=== PATIENT | female | born 1965 | race African-American/Black ===

== ENCOUNTER 2021-05-31 06:48 | Observation (INO) | payer BC, SELFPAY ==
[2021-05-31] MEDS ORDERED: Ondansetron PF 4 MG/2 ML Vial ONE (07:18)
[2021-05-31] MEDS ORDERED: Diazepam 10 MG/2 ML SYRINGE ONE ×2 (07:43→11:58)
[2021-05-31 07:44] LABS: #Basophils 0.1 10x3/uL (0.0-0.2); #Eosinphils 0.2 10x3/uL (0.0-0.5); #Monocytes 0.3 10x3/uL (0.0-1.1); #Neutrophils 5.6 10x3/uL (1.5-8.4); %Basophils 0.6 % (0.0-2.0); %Eosinophils 1.7 % (0.0-6.0); %Lymphocytes 37.2 % (18.0-47.0); %Monocytes 3.1 % (0.0-10.0); %Neutrophils 56.6 % (40.0-75.0); Hemoglobin 13.5 g/dL (12.0-15.5); Mean Corpuscular HGB CONC 33.1 g/dL (32.0-36.0); Mean Corpuscular Hemoglobin 28.6 pg (27.0-33.0); Mean Corpuscular Volume 86.4 fl (81.6-98.3); Mean Platelet Volume 9.9 fl (7.4-10.4); Platelet Count 241 10x3/uL (150-450); RBC Distribution Width 12.5 % (11.5-14.5); Red Blood Cell (RBC) Count 4.72 10x6/uL (3.90-5.03); White Blood Cell (WBC) Count 9.8 10x3/uL (3.5-10.5)
[2021-05-31 07:49] LABS: ALT (SGPT) 16 U/L (8-55); AST (SGOT) 19 U/L (5-34); Albumin 4.4 g/dL (3.5-5.0); Alkaline Phosphatase 150 U/L (40-110); Anion Gap 18 mmol/L (10-20); BUN (Urea Nitrogen) 9 mg/dL (9.8-20.1); Bilirubin, Total 0.5 mg/dL (0.2-1.2); Calc. Creatinine Clearance 0 mL/min (70-130); Carbon Dioxide 22 mmol/L (22-29); Chloride 100 mmol/L (98-107); Globulin 3.8 g/dL (2.4-3.5); Glucose 510 mg/dL (70-105); Potassium 3.4 mmol/L (3.5-5.1); Protein, Total 8.2 g/dL (6.0-8.3); Sodium 137 mmol/L (136-145)
[2021-05-31] MEDS ORDERED: Meclizine HCl 25 MG TAB ONE (08:17)
[2021-05-31] MEDS ORDERED: Dextrose 50% Abboject 50 ML SYRINGE SLOW IVP PRN (10:29)
[2021-05-31] MEDS ORDERED: Dextrose 5% in Water 1,000 ML IV PRN (10:29)
[2021-05-31] MEDS ORDERED: HumaLOG 300 UNITS/3 ML VIAL SC PRN (10:29)
[2021-05-31] MEDS ORDERED: Senokot S 8.6-50 MG TAB PO PRN (11:19)
[2021-05-31 13:09] VITALS: BMI 28.8
[2021-05-31] MEDS ORDERED: ADMIXTURE FEE IV SCH (13:30)
[2021-05-31] MEDS ORDERED: SODIUM CHLORIDE IV SCH (13:30)
[2021-05-31] MEDS ORDERED: POTASSIUM ACETATE IV SCH (13:30)
[2021-05-31] MEDS: Ondansetron PF 4 MG/2 ML Vial IVP PRN ×2 (13:47→23:27)
[2021-05-31] MEDS: HumaLOG 300 UNITS/3 ML VIAL SC PRN ×3 (13:48→20:41)
[2021-05-31 14:07] LABS: Hemoglobin A1c Greater than 14.0 % (4.0-6.0)
[2021-05-31 14:31] LABS: Bilirubin Neg (Negative); Blood, Urine Negative (Negative); Clarity Clear (Clear); Glucose, Urine (Dipstick) >=1000 mg/dL (Negative); Ketone, Urine Negative (Negative); Leukocyte Negative (Negative); Nitrite Negative (Negative); Protein, Urine (Dipstick) Negative (Neg-Trace); Specific Gravity, Urine 1.005 (1.002-1.036); Urobilinogen Normal mg/dL (Less than 2)
[2021-05-31] MEDS: SODIUM CHLORIDE IV SCH (15:03)
[2021-05-31] MEDS: ADMIXTURE FEE IV SCH (15:03)
[2021-05-31] MEDS: POTASSIUM CHLORIDE IV SCH (15:03)
[2021-05-31] MEDS: hydrALAZINE 20 MG/ML VIAL SLOW IVP PRN ×2 (15:05→23:34)
[2021-05-31] MEDS: Meclizine HCl 25 MG TAB PO SCH ×2 (15:06→21:29)
[2021-05-31 15:45] LABS: Urine Culture Reflex No No
[2021-05-31 15:49] LABS: Bacteria/HPF Rare-Few HPF (None Seen); RBC/HPF 0-3 HPF (0-3); Squamous Epithelial 0-3 HPF (0-3)
[2021-05-31 15:50] LABS: Yeast-Budding Rare HPF (None Seen)
[2021-05-31] MEDS: Famotidine 20 MG TAB PO SCH (20:31)
[2021-05-31] MEDS ORDERED: Lantus 1000 UNITS/10 ML VIAL SC SCH (21:00)
[2021-05-31] MEDS ORDERED: diphenhydrAMINE 25 MG CAP PO SCH (22:15)
[2021-05-31 22:31] LABS: SARS-CoV-2 NAA Rapid Test Not Detected (NotDetected)
[2021-05-31] MEDS: Acetaminophen 325 MG TAB PO PRN (23:23)
[2021-06-01] MEDS ORDERED: Ketorolac Tromethamine 30 MG/ML VIAL IVP SCH (00:30)
[2021-06-01] MEDS: SODIUM CHLORIDE IV SCH ×2 (00:59→20:08)
[2021-06-01] MEDS: POTASSIUM CHLORIDE IV SCH ×2 (00:59→20:08)
[2021-06-01] MEDS: ADMIXTURE FEE IV SCH ×2 (00:59→20:08)
[2021-06-01] MEDS ORDERED: cloNIDine 0.1 MG TAB PO SCH (01:00)
[2021-06-01 04:56] LABS: #Eosinphils 0.1 10x3/uL (0.0-0.5); #Monocytes 0.3 10x3/uL (0.0-1.1); #Neutrophils 5.6 10x3/uL (1.5-8.4); %Basophils 0.5 % (0.0-2.0); %Eosinophils 1.2 % (0.0-6.0); %Lymphocytes 27.7 % (18.0-47.0); %Monocytes 3.3 % (0.0-10.0); Hemoglobin 12.1 g/dL (12.0-15.5); Mean Corpuscular HGB CONC 32.9 g/dL (32.0-36.0); Mean Corpuscular Hemoglobin 28.1 pg (27.0-33.0); Mean Corpuscular Volume 85.6 fl (81.6-98.3); Mean Platelet Volume 9.8 fl (7.4-10.4); Platelet Count 170 10x3/uL (150-450); RBC Distribution Width 12.8 % (11.5-14.5); White Blood Cell (WBC) Count 8.5 10x3/uL (3.5-10.5)
[2021-06-01] MEDS: HumaLOG 300 UNITS/3 ML VIAL SC PRN ×4 (04:57→20:18)
[2021-06-01 05:19] LABS: ALT (SGPT) 13 U/L (8-55); AST (SGOT) 11 U/L (5-34); Albumin 3.7 g/dL (3.5-5.0); Alkaline Phosphatase 93 U/L (40-110); Anion Gap 12 mmol/L (10-20); BUN (Urea Nitrogen) 7 mg/dL (9.8-20.1); Bilirubin, Total 0.8 mg/dL (0.2-1.2); Calc. Creatinine Clearance 121 mL/min (70-130); Calcium 9.1 mg/dL (7.8-10.44); Carbon Dioxide 24 mmol/L (22-29); Chloride 107 mmol/L (98-107); Cholesterol 136 mg/dl (< 200 Desired); Globulin 2.8 g/dL (2.4-3.5); Glucose 282 mg/dL (70-105); HDL Cholesterol 45 mg/dL (>60 Neg Risk); LDL Cholesterol, Calculated 46 mg/dL; Potassium 3.9 mmol/L (3.5-5.1); Protein, Total 6.5 g/dL (6.0-8.3); Sodium 139 mmol/L (136-145); Triglycerides 225 mg/dL (Less than 150)
[2021-06-01] MEDS: Meclizine HCl 25 MG TAB PO SCH ×3 (05:47→22:15)
[2021-06-01] MEDS: Ondansetron PF 4 MG/2 ML Vial IVP PRN ×2 (08:12→21:13)
[2021-06-01] MEDS: Acetaminophen 325 MG TAB PO PRN ×2 (08:16→20:05)
[2021-06-01] MEDS: Amlodipine 10 MG TAB PO SCH (08:17)
[2021-06-01] MEDS: Famotidine 20 MG TAB PO SCH ×2 (08:17→20:06)
[2021-06-01] MEDS: Enoxaparin Sodium 40 MG/0.4 ML SYRINGE SC SCH (08:17)
[2021-06-01] MEDS ORDERED: Fioricet 325/50/40 mg Tablet PO SCH (10:15)
[2021-06-01] MEDS ORDERED: SODIUM CHLORIDE IV SCH (11:00)
[2021-06-01] MEDS ORDERED: POTASSIUM CHLORIDE IV SCH (11:00)
[2021-06-01] MEDS ORDERED: ADMIXTURE FEE IV SCH (11:00)
[2021-06-01] MEDS ORDERED: cefTRIAXone\\ROCEPHIN 2 GM in Sodium Chloride 0.9% 100 ML IVPB SCH (16:30)
[2021-06-01] MEDS: hydrALAZINE 20 MG/ML VIAL SLOW IVP PRN (20:07)
[2021-06-01] MEDS ORDERED: Lantus 1000 UNITS/10 ML VIAL SC SCH (21:00)
[2021-06-01] MEDS ORDERED: Atorvastatin Calcium 40 MG TAB PO SCH (21:00)
[2021-06-01] MEDS ORDERED: Labetalol HCl 100 MG/20 ML VIAL SLOW IVP SCH (21:45)
[2021-06-01] MEDS: AMOXicillin 250 MG CAP PO SCH (22:15)
[2021-06-02] MEDS ORDERED: Promethazine HCl 12.5 MG, Admixture Fee 1 EACH in Sodium Chloride 0.9% 50 ML IVPB SCH (00:45)
[2021-06-02] MEDS ORDERED: Labetalol HCl 100 MG/20 ML VIAL SLOW IVP SCH (01:00)
[2021-06-02] MEDS ORDERED: cloNIDine 0.1 MG TAB PO SCH (02:15)
[2021-06-02] MEDS ORDERED: Morphine 4 MG/ML VIAL SLOW IVP SCH (04:00)
[2021-06-02] MEDS ORDERED: Lorazepam 2 MG/ML VIAL SLOW IVP SCH (04:00)
[2021-06-02] MEDS: AMOXicillin 250 MG CAP PO SCH (05:26)
[2021-06-02] MEDS: Meclizine HCl 25 MG TAB PO SCH (05:26)
[2021-06-02] MEDS: HumaLOG 300 UNITS/3 ML VIAL SC PRN ×2 (06:22→11:13)
[2021-06-02] MEDS ORDERED: Lantus 1000 UNITS/10 ML VIAL SC SCH (09:00)
[2021-06-02] MEDS ORDERED: Lisinopril 20 MG TAB PO SCH (09:00)
[2021-06-02] MEDS: Amlodipine 10 MG TAB PO SCH (09:50)
[2021-06-02] MEDS: Famotidine 20 MG TAB PO SCH (09:50)
[2021-06-02] MEDS: Enoxaparin Sodium 40 MG/0.4 ML SYRINGE SC SCH (09:51)
[2021-06-02] MEDS ORDERED: hydrOXYzine 25 MG TAB PO PRN (10:21)
[2021-06-02] MEDS ORDERED: Hydrochlorothiazide 25 MG TAB PO SCH (10:30)
[2021-06-02] MEDS ORDERED: Promethazine 25 MG TAB PO PRN (10:32)
[2021-06-02 11:17] VITALS: TEMP 98.3
[2021-06-02 13:44] VITALS: BP 135/72
[2021-06-03] MEDS ORDERED: Hydrochlorothiazide 25 MG TAB PO SCH (09:00)
== END 2021-06-02 14:44 | disposition home or self-care (01) ==
LOC: CSHERS 06:48 → EDBD 10:58 → CSHTELE 10:58
PROVIDERS: ADMIT Hospitalist; ATTEND Internal Medicine
DX: E11.65 Type 2 diabetes mellitus with hyperglycemia (principal); R42 Dizziness and giddiness; E78.1 Pure hyperglyceridemia; E87.6 Hypokalemia; I10 Essential (primary) hypertension; R82.71 Bacteriuria; K21.9 Gastro-esophageal reflux disease without esophagitis; Z20.822 Contact with and (suspected) exposure to COVID-19
CPT/HCPCS: 36415; 36416; 70450; 70551; 80053; 80061; 81001; 82010; 83036; 84443; 85025; 87077; 87086; 93005; 93010; 93306; 93880; 96372; 96374; 96375; 96376; G0378; J0360; J1650; J1815; J1885; J2060; J2270; J2405; J2550; J3360; J3480; J7050; U0002